=== PATIENT | male | born 1985 | race American Indian/Alaskan Native ===

== ENCOUNTER 2017-10-12 10:52 | Emergency (ER) | payer OTHER ==
[2017-10-12 10:57] VITALS: BP 138/78; PULSE 84; TEMP 98.1; BMI 18.4
[2017-10-12] MEDS ORDERED: LIDOCAINE HCL 1%, 10 MG/ML (20ML VIAL) ONE (11:38)
[2017-10-12] MEDS ORDERED: LIDOCAINE HCL 1%, 10 MG/ML (50 mL VIAL) SQ ONE (11:47)
[2017-10-12] MEDS ORDERED: AMOXICILLIN 500 MG CAPSULE (FP) PO ONE (11:47)
--- NOTE | 2017-10-12 11:47 | PDOC ---
History of Present Illness - General Chief Complaint: Pain Stated Complaint: TOOTHACHE Time Seen by Provider: 10/12/17 11:07 History Source: Patient Exam Limitations: No Limitations - History of Present Illness Initial Comments: 10/12/17 13:14 32-year-old male presents to the emergency department complaining of right upper second molar toothache 3 days without fever, chills, nausea/vomiting, difficulty swallowing, gum pain, jaw pain. Patient states he had dental work done about 6 months ago and never returned for follow-up appointment. Pain is described as 8/10 dull nonradiating intermittent discomfort which is exacerbated and drinking cold liquids. Past History - Past Medical History Allergies/Adverse Reactions: Allergies Allergy/AdvReac Type Severity Reaction Status Date / Time shellfish derived Allergy Verified 10/12/17 10:53 Home Medications: Ambulatory Orders NK [No Known Home Medication] 10/12/17 Asthma: Yes COPD: No - Suicide/Smoking/Psychosocial Hx Smoking History: Current every day smoker Have you smoked in the past 12 months: Yes Number of Cigarettes Smoked Daily: 6 Information on smoking cessation initiated: Yes 'Breaking Loose' booklet given: 10/12/17 Hx Alcohol Use: No Drug/Substance Use Hx: Yes (malena) Substance Use Type: None Review of Systems - Review of Systems Able to Perform ROS?: Yes Comments:: 10/12/17 13:16 CONSTITUTIONAL: Absent: fever, chills, diaphoresis, generalized weakness, malaise, loss of appetite HEENT: +right upper 2nd molar toothache Absent: rhinorrhea, nasal congestion, throat pain, throat swelling, difficulty swallowing, mouth swelling, ear pain, eye pain, visual Changes CARDIOVASCULAR: Absent: chest pain, loss of consciousness, palpitations, irregular heart rate, peripheral edema RESPIRATORY: Absent: cough, shortness of breath, dyspnea with exertion, orthopnea, wheezing, stridor, hemoptysis GASTROINTESTINAL: Absent: abdominal pain, abdominal distension, nausea, vomiting, diarrhea, constipation, melena, hematochezia GENITOURINARY: Absent: dysuria, frequency, urgency, hesitancy, hematuria, flank pain, genital pain MUSCULOSKELETAL: Absent: myalgia, arthralgia, joint swelling SKIN: Absent: rash, itching, pallor Is the patient limited Korean proficient: No *Physical Exam - Vital Signs Last Vital Signs Temp Pulse Resp BP Pulse Ox 98.1 F 84 18 138/78 100 10/12/17 10:53 10/12/17 10:53 10/12/17 10:53 10/12/17 10:53 10/12/17 10:53 - Physical Exam Comments: 10/12/17 13:19 GENERAL: Well developed, well nourished. Awake and alert. No acute distress. HEENT: +right upper 2nd molar pain on percussion neg swelling gum pain on percussion Normocephalic, atraumatic. PERRLA, EOMI. No conjunctival pallor. Sclera are non- icteric. Moist mucous membranes. Oropharynx is clear. SKIN: Warm and dry. Normal capillary refill. No rashes. No jaundice. *DC/Admit/Observation/Transfer Diagnosis at time of Disposition: Toothache - Discharge Dispostion Disposition: HOME Condition at time of disposition: Stable Admit: No - Referrals Referrals: Suzy Virk MD [Non Staff, Medical] - - Patient Instructions Printed Discharge Instructions: DI for Tooth Decay Additional Instructions: Tylenol alternating with Motrin as needed for pain Antibiotics/amoxicillin as prescribed until completion Return back to the emergency department for severe/persistent or worsening symptoms Follow up with the dentist [facility] [phone] [place]: [phone] Friday through Friday: 4 PM to 9 PM Friday and Friday 9 AM to 5 PM - Post Discharge Activity
[2017-10-12] MEDS ORDERED: AMOXICILLIN 250 MG CAPSULE ONE (11:51)
== END 2017-10-12 11:53 | disposition home or self-care (01) ==
LOC: JERFT 10:52
PROC: 3E013BZ Introduction of Anesthetic Agent into Subcutaneous Tissue, Percutaneous Approach (ICD-10-PCS; principal; 2017-10-12)
DX: K08.89 Other specified disorders of teeth and supporting structures (principal); F17.210 Nicotine dependence, cigarettes, uncomplicated
CPT/HCPCS: 96372; 99281-25